=== PATIENT | female | born 1995 | race Two or more races ===

== ENCOUNTER 2021-01-23 11:43 | Emergency (ER) | payer OTHER ==
[~2021-01-23] VITALS: Ht 162.6 cm; Wt 57.8 kg
--- NOTE | 2021-01-23 12:23 | PHYS DOC ---
Past History Past Surgical History: No Surgical History (HERMELINDO CALVILLO APRN) Alcohol Use: None (HERMELINDO CALVILLO APRN) General Adult EDM: Chief Complaint: SHORTNESS OF BREATH HPI: HPI: Patient is a 25-year-old female being seen in the ER today for multiple complaints. She reports symptoms of fever, sore throat, body aches, headache, yellow productive cough, shortness of breath, facial tenderness that started yesterday. She got her second shot of the Pfizer vaccine on January 11. She has been taking Tylenol at home. Her last dose was at 10:00 this morning. Patient is afebrile at this time. She denies nausea, vomiting, loss of taste or smell, sick exposures. (HERMELINDO CALVILLO APRN) Review of Systems: Review of Systems: 14 body systems of the review of systems have been reviewed. See HPI for pertinent positive and negative responses, otherwise all other systems are negative, nonpertinent or noncontributory (HERMELINDO CALVILLO APRN) Physical Exam: PE: Constitutional: Well developed, well nourished, no acute distress, non-toxic appearance. [] HENT: Normocephalic, atraumatic, bilateral external ears normal, oropharynx moist, no oral exudates, nose normal, 2+ tonsillar enlargement, pharynx erythematous, postnasal drainage noted, pain with palpation of maxillary sinuses Eyes: PERRLA, EOMI, conjunctiva normal, no discharge. [] Neck: Normal range of motion, no stridor, right anterior cervical chain lymphadenopathy Cardiovascular:Heart rate regular rhythm, no murmur [] Lungs & Thorax: Bilateral breath sounds clear to auscultation, patient nonlabored, no accessory muscle use, not hypoxic [] Abdomen: Bowel sounds normal, soft, no tenderness, no masses, no pulsatile masses. [] Skin: Warm, dry, no erythema, no rash. [] Back: Normal range of motion Extremities: No tenderness, no cyanosis, no clubbing, ROM intact, no edema. [] Neurologic: Alert and oriented X 3, normal motor function, normal sensory function, no focal deficits noted. [] Psychologic: Affect normal, judgement normal, mood normal. [] (HERMELINDO CALVILLO APRN) Current Patient Data: Vital Signs: Vital Signs Date Time Temp Pulse Resp B/P (MAP) Pulse Ox O2 Delivery O2 Flow Rate FiO2 01/23/21 12:03 98.4 98 18 118/76 100 Room Air (HERMELINDO CALVILLO APRN) EKG: EKG: [] (HERMELINDO CALVILLO APRN) Radiology/Procedures: Radiology/Procedures: PROCEDURE: CHEST AP ONLY AP chest. HISTORY: Short of breath AP view was taken of the chest. Lungs are free of infiltrates. Heart is normal in size. There is mild hyperexpansion. There is no pleural effusion. IMPRESSION: 1. Mild hyperexpansion. 2. No acute infiltrates. Electronically signed by: Eric Olmos MD (01/23/2021 12:39 PM) [id number] DICTATED AND SIGNED BY: ERIC OLMOS MD DATE: 01/23/21 1238 CC: EMERGENCY,DEPARTMENT; HERMELINDO CALVILLO APRN; PCP,NO ~MTH0 0 [] (HERMELINDO CALVILLO APRN) Heart Score: C/O Chest Pain: No Risk Factors: Risk Factors: DM, Current or recent (<one month) smoker, HTN, HLP, family history of CAD, obesity. Risk Scores: Score 0 - 3: 2.5% MACE over next 6 weeks - Discharge Home Score 4 - 6: 20.3% MACE over next 6 weeks - Admit for Clinical Observation Score 7 - 10: 72.7% MACE over next 6 weeks - Early Invasive Strategies (HERMELINDO CALVILLO APRN) Course & Med Decision Making: Course & Med Decision Making Pertinent Labs and Imaging studies reviewed. (See chart for details) [] Patient is a 25-year-old female being seen in the ER today for multiple complaints including fever, sore throat, body aches, headache. Patient was tested for strep and Covid in the ER and a chest x-ray was performed. Rapid strep test was negative. Chest x-ray showed hyperinflation of lungs. Patient does not have a diagnosis of asthma but was given an albuterol inhaler at one point. Patient treated with a DuoNeb in the ER. Covid pending and she will be notified of the results when they become available. Upon physical exam, patient did have pain with palpation of maxillary sinuses. It is likely that patient has sinusitis. Patient will be treated with Augmentin. I discussed with p atient all findings and diagnostic testing as well as the need to follow-up with PCP for further evaluation and treatment or return to the ER if any new or worsening symptoms. Strict return precautions were also discussed at length. Patient voiced understanding and agreement with the plan. Patient is hemodynamically stable at the time of disposition. (HERMELINDO CALVILLO APRN) Dragon Disclaimer: Dragon Disclaimer: This electronic medical record was generated, in whole or in part, using a voice recognition dictation system. (HERMELINDO CALVILLO APRN) Attending Co-Sign The patient was seen and interviewed as well as examined at the bedside. The chart was reviewed. The case was discussed. Agree with the plan of care. (DANA BARAJAS DO) Departure Departure: Impression: Primary Impression: Sinusitis Qualified Codes: J01.00 - Acute maxillary sinusitis, unspecified Additional Impression: Viral respiratory illness Disposition: HOME / SELF CARE / HOMELESS Condition: GOOD Referrals: PCP,NO (PCP) Patient Instructions: Sinusitis, Upper Respiratory Infection, Adult Additional Instructions: You were seen in the ER today for complaints of fever, sore throat, body aches, headache, cough. We performed a rapid strep test in the ER and it was negative. We also performed a chest x-ray which showed some hyperinflation of the lungs which would be consistent with asthma. For this you were given a breathing treatment in the ER. I know that you have not been diagnosed with asthma but was given an inhaler. You can continue to use the inhaler as directed. You should follow-up with your primary care provider soon as possible to determine if you have asthma through pulmonary function tests. Please follow-up with your primary care provider tomorrow regarding your ER visit today. You were tested for COVID-19 in the ER. We will not know these results for approximately 24 to 48 hours. You will receive a phone call with your results when they become available. Please self isolate until you receive these results. If you are positive for COVID-19 you must stay in self-isolation for 10 days following the first day of your symptom onset. For your fever and body aches you can take Tylenol or ibuprofen. Please make sure that you are staying well-hydrated and rest. You were noted on physical exam to have pain over your sinuses. It is likely that you have sinusitis. Please take the antibiotic that was sent in for you completely. This medication may cause some GI upset so please take with food. If your symptoms worsen or you develop difficulty breathing, chest pain, high fevers that do not go down with treatment, nausea or vomiting please return to the ER. EMERGENCY DEPARTMENT GENERAL DISCHARGE INSTRUCTIONS Thank you for coming to [facility] (ED) today and trusting us with you care. We trust that you had a positivie experience in our Emergency Department. If you wish to speak to the department management, you may call the director at [phone]. YOUR FOLLOW UP INSTRUCTIONS ARE FOLLOWS: 1. Do you have a private Doctor? If you do not have a private doctor, please ask for a resource list of physicians or clinics that may be able to assist you with follow up care. 2. The Emergency Physician has interpreted your x-rays. The X-Ray specialist will also review them. If there is a change in the findings, you will be notified in 48 hours when at all possible. 3. A lab test or culture has been done, your results will be reviewed and you will be notified if you need a change in treatment. ADDITIONAL INSTRUCTIONS AND INFORMATION: 1. Your care today has been supervised by a physician who is specially trained in emergency care. Many problems require more than one evaluation for a complete diagnosis and treatment. We recommend that you schedule your follow up appointment as recommended to ensure complete treatment of you illness or injury. If you are unable to obtain follow up care and continue to have a problem, or if your condition worsens, we recommend that you return to the ED. 2. We are not able to safely determine your condition over the phone nor are we able to give sound medical advice over the phone. For these safety reasons, if you call for medical advice we will ask you to come to the ED for further evaluation. 3. If you have any questions regarding these discharge instructions please call the ED at [phone]. SAFETY INFORMATION: In the interest of safety, wellness, and injury prevention; we encourage you to wear your sealbelt, if you smoke; quite smoking, and we encourage family to use a protective helmet for bicycling and other sporting events that present an increased risk for head injury. IF YOUR SYMPTOMS WORSEN OR NEW SYMPTOMS DEVELOP, OR YOU HAVE CONCERNS ABOUT YOUR CONDITION; OR IF YOUR CONDITION WORSENS WHILE YOU ARE WAITING FOR YOUR FOLLOW UP APPOINTMENT; EITHER CONTACT YOUR PRIMARY CARE DOCTOR, THE PHYSICIAN WHOSE NAME AND NUMBER YOU WERE GIVEN, OR RETURN TO THE ED IMMEDIATELY. Scripts Amoxicillin/Potassium Clav (AUGMENTIN 875-125 TABLET) 1 Each Tablet 1 TAB PO BID for sinusitis for 10 Days, #20 TAB 0 Refills Prov: HERMELINDO CALVILLO APRN 01/23/21 HERMELINDO CALVILLO APRN Jan 23, 2021 12:23 DANA BARAJAS DO Jan 24, 2021 18:06
--- NOTE | 2021-01-23 12:42 | RAD ---
AP chest. HISTORY: Short of breath AP view was taken of the chest. Lungs are free of infiltrates. Heart is normal in size. There is mild hyperexpansion. There is no pleural effusion. IMPRESSION: 1. Mild hyperexpansion. 2. No acute infiltrates. Electronically signed by: Navid Cedillo MD (01/23/2021 12:39 PM) [id number]
[2021-01-23] MEDS ORDERED: AMOX1TAB61 PO (12:57)
[2021-01-23] MEDS ORDERED: IPRATRPIUM/ALBUTEROL 0.5/2.5MG 3 ML NEBU. NEB ONE (13:00)
[2021-01-23] MEDS ORDERED: IPRATRPIUM/ALBUTEROL 0.5/2.5MG 3 ML NEBU. ONE (13:10)
[2021-01-23 13:32] VITALS: BP 116/72
--- NOTE | 2021-01-24 16:06 | NUR ---
IP: Informed pt of negative covid test. Pt verbalized understanding.
== END 2021-01-23 13:27 | disposition home or self-care (01) ==
LOC: ER 11:43
DX: J32.9 Chronic sinusitis, unspecified (principal); B34.9 Viral infection, unspecified; Z20.822 Contact with and (suspected) exposure to COVID-19
CPT/HCPCS: 71045; 87070; 87880; 94640; 99284; U0005

== ENCOUNTER 2021-03-13 11:21 | Emergency (ER) | payer OTHER ==
[~2021-03-13] VITALS: Ht 162.6 cm; Wt 57.0 kg
[~2021-03-13 11:21] MED LIST: AMOX1TAB61 PO
[2021-03-13 11:32] VITALS: BP 118/82
--- NOTE | 2021-03-13 11:53 | PHYS DOC ---
Past History Past Surgical History: No Surgical History Alcohol Use: None General Adult EDM: Chief Complaint: MENSTRUAL PAIN/CRAMPS HPI: HPI: Patient is a 25 year old female who presents with pelvic pain. Pain has been going on for approximately 3 days. Is crampy in nature. Comes in waves. It is in the midline as well as the bilateral areas of the pelvis. No upper abdominal pain. No fevers/chills. No vaginal discharge. No bleeding. LMP 02/22. Has been sexually active since then. In a monogamous relationship with her . They are trying to get . She has taken a test that has been negative. She has no dysuria, urgency, frequency. No nausea/vomiting. No diarrhea. Eating and drinking well. She also works in a warehouse, and is concerned that she could potentially have strained her abdominal muscles. Review of Systems: Review of Systems: Constitutional: Denies fever or chills Eyes: Denies change in visual acuity HENT: Denies nasal congestion or sore throat Respiratory: Denies cough or shortness of breath Cardiovascular: Denies chest pain or edema GI: Denies abdominal pain, nausea, vomiting, bloody stools or diarrhea : Reports pelvic pain. Denies dysuria, urgency, frequency. Denies vaginal discharge or bleeding. Musculoskeletal: Denies back pain or joint pain Integument: Denies rash Neurologic: Denies headache, focal weakness or sensory changes Endocrine: Denies polyuria or polydipsia Lymphatic: Denies swollen glands Psychiatric: Denies depression or anxiety Allergies: Allergies: Allergies Coded Allergies Type Severity Reaction Last Updated Verified No Known Drug Allergies 03/13/21 No Physical Exam: PE: Constitutional: Well developed, well nourished, no acute distress, non-toxic appearance. [] HENT: Normocephalic, atraumatic, bilateral external ears normal, oropharynx moist, no oral exudates, nose normal. [] Eyes: PERRLA, EOMI, conjunctiva normal, no discharge. [] Neck: Normal range of motion, no tenderness, supple, no stridor. [] Cardiovascular:Heart rate regular rhythm, no murmur [] Lungs & Thorax: Bilateral breath sounds clear to auscultation [] Abdomen: Soft, nondistended. Has bilateral low pelvic pain with guarding. [] Skin: Warm, dry, no erythema, no rash. [] Back: No tenderness, no CVA tenderness. [] Extremities: No tenderness, no cyanosis, no clubbing, ROM intact, no edema. [] Neurologic: Alert and oriented X 3, normal motor function, normal sensory function, no focal deficits noted. [] Psychologic: Affect normal, judgement normal, mood normal. [] Current Patient Data: Vital Signs: Vital Signs Date Time Temp Pulse Resp B/P (MAP) Pulse Ox O2 Delivery O2 Flow Rate FiO2 03/13/21 11:32 97.6 90 18 118/82 (94) 100 Room Air EKG: EKG: [] Radiology/Procedures: Radiology/Procedures: [] Impressions: [place] [address] IMAGING REPORT Signed PATIENT: KARINA OLMEDO ACCOUNT: [id number] : 1995 LOCATION: ER AGE: 25 SEX: F EXAM STATUS: REG ER ORD. PHYSICIAN: ANA MARSH MD REASON: pelvic pain, eval for mass/torsion PROCEDURE: US PELVIS W/TV INDICATION: Reason: pelvic pain, eval for mass/torsion / Spl. Instructions: / History: COMPARISON: None. TECHNIQUE: Grayscale and color ultrasound images uterus and adnexa. Transabdominal and transvaginal images obtained. Transvaginal images were needed to better visualize structures that were limited on transabdominal imagi ng. FINDINGS: Uterus: 79 x 52 x 40 mm. 13 mm endometrial stripe Right Ovary: 33 x 20 x 17 mm. Left Ovary: 32 x 22 x 17 mm. Vascular flow identified to bilateral ovaries. 4 mm cyst within the endometrial stripe. There is some free fluid within the pelvis. IMPRESSION: * Vascular flow is seen to the bilateral ovaries with multiple follicles. No worrisome ovarian mass. * Endometrial stripe measures up to about 13 mm which could be from phase of menstrual cycle. There is a small cyst within the endometrial stripe. Electronically signed by: Eugene Bueno MD (03/13/2021 12:34 PM) [id number] DICTATED AND SIGNED BY: EUGENE BUENO MD DATE: 03/13/21 1228 CC: ANA MARSH MD; PCP,NO ~MTH0 0 Heart Score: C/O Chest Pain: No Risk Factors: Risk Factors: DM, Current or recent (<one month) smoker, HTN, HLP, family history of CAD, obesity. Risk Scores: Score 0 - 3: 2.5% MACE over next 6 weeks - Discharge Home Score 4 - 6: 20.3% MACE over next 6 weeks - Admit for Clinical Observation Score 7 - 10: 72.7% MACE over next 6 weeks - Early Invasive Strategies Course & Med Decision Making: Course & Med Decision Making Pertinent Labs and Imaging studies reviewed. (See chart for details) Patient a 25-year-old female who presents with 3 days of pelvic pain. On arrival is afebrile, hemodynamically stable. Well-appearing on exam. She does have bilateral lower pelvic discomfort with palpation. No dysuria, urgency, frequency significance UTI. Will check UA. We will check test, normal and ectopic are certainly possibilities. No symptoms of STI and is in a monogamous relationship. Will defer any STI testing. Low suspicion for abdominal/GI cause such as appendicitis. We will check pelvic ultrasound for signs of torsion, uterine mass. As above less likely TOA or PID. 1151 UA normal test negative. Good blood flow to b/l ovaries. Thickened endometrium with endometrial cyst. We will advise that she takes serial test at home, to ensure this is not a developing . Feel she can be safely discharged at this time. Return precautions discussed for fever, worsening pain, nausea, vomiting, or other new/worsening symptoms. [id number] Darcy Disclaimer: Darcy Disclaimer: This electronic medical record was generated, in whole or in part, using a voice recognition dictation system. Departure Departure: Impression: Primary Impression: Pelvic pain Disposition: HOME / SELF CARE / HOMELESS Condition: STABLE Referrals: PCP,NO (PCP) Additional Instructions: Your ultrasound showed that you had a small in your uterus. Your test was negative, but there is a small chance that it could be too early to detect. Please take another test in approximately a week. If you develop worsening pain, fever, chills, nausea, vomiting, or other new/concerning symptoms please return to the emergency department for reevaluation. For pain: Tylenol 1000mg every 6 hours hot/cold packs on your low abdomen. ANA MARSH MD Mar 13, 2021 11:53
--- NOTE | 2021-03-13 12:37 | RAD ---
INDICATION: Reason: pelvic pain, eval for mass/torsion / Spl. Instructions: / History: COMPARISON: None. TECHNIQUE: Grayscale and color ultrasound images uterus and adnexa. Transabdominal and transvaginal images obtained. Transvaginal images were needed to better visualize structures that were limited on transabdominal imaging. FINDINGS: Uterus: 79 x 52 x 40 mm. 13 mm endometrial stripe Right Ovary: 33 x 20 x 17 mm. Left Ovary: 32 x 22 x 17 mm. Vascular flow identified to bilateral ovaries. 4 mm cyst within the endometrial stripe. There is some free fluid within the pelvis. IMPRESSION: * Vascular flow is seen to the bilateral ovaries with multiple follicles. No worrisome ovarian mass . * Endometrial stripe measures up to about 13 mm which could be from phase of menstrual cycle. There is a small cyst within the endometrial stripe. Electronically signed by: Stanford Bueno MD (03/13/2021 12:34 PM) [id number]
[2021-03-13 13:02] LABS: BILIRUBIN,URINE NEG (NEG); CLARITY,URINE CLEAR; COLOR,URINE STRAW; GLUCOSE,URINE NEG (NEG); NITRITE,URINE NEG (NEG); UROBILINOGEN,URINE 0.2 mg/dL (0.2 mg/dL)
[2021-03-13 13:03] LABS: BACTERIA,URINE 0 /HPF (0-FEW); RBC,URINE 0 /HPF (0-2); SQUAMOUS EPITHELIAL CELL,UR FEW /LPF; WBC,URINE 0 /HPF (0-4)
== END 2021-03-13 13:25 | disposition home or self-care (01) ==
LOC: ER 11:21
DX: R10.2 Pelvic and perineal pain (principal); R93.89 Abnormal findings on diagnostic imaging of other specified body structures; Z32.02 Encounter for pregnancy test, result negative
CPT/HCPCS: 76830; 76856; 81001; 81025; 99284-25